=== PATIENT | male | born 1990 | race Two or more races ===

== ENCOUNTER 2019-01-13 17:17 | Emergency (ER) | payer OTHER ==
[~2019-01-13] VITALS: Ht 180.3 cm; Wt 82.6 kg
[2019-01-13 17:29] VITALS: Ht 180.3 cm; Wt 82.6 kg
[2019-01-13 17:50] LABS: BASOPHIL % 0.7 % (0-2); PLATELET COUNT 256 x10^3mcL (130-400); RED CELL DISTRIBUTION WIDTH 12.8 % (11.5-14.5)
[2019-01-13 17:57] LABS: CALCIUM 8.6 mg/dL (8.5-10.1); CARBON DIOXIDE 28.5 mmol/L (21-32); CHLORIDE SERUM 102 mmol/L (98-107); GFR1 > 60 mL/min; GLUCOSE SERUM 119 mg/dL (74-106); POTASSIUM SERUM 3.9 mmol/L (3.5-5.1); SODIUM SERUM 140 mmol/L (136-145)
[2019-01-13 18:01] LABS: ALKALINE PHOSPHATASE 65 U/L (46-116); ALT/SGPT 36 U/L (16-63); AST/SGOT 22 U/L (15-37); BILIRUBIN TOTAL 0.4 mg/dL (0.20-1.00); LIPASE 396 IU/L (73-393); TOTAL PROTEIN, SERUM 7.2 g/dL (6.4-8.2)
[2019-01-13 19:48] VITALS: BP 118/64
== END 2019-01-13 19:48 | disposition home or self-care (01) ==
LOC: ED 17:17
PROVIDERS: Emergency Medicine
DX: K29.00 Acute gastritis without bleeding (principal)
CPT/HCPCS: 36415; Q0092; Q0162

== ENCOUNTER 2019-02-17 15:54 | Emergency (ER) | payer OTHER ==
[~2019-02-17] VITALS: Ht 180.3 cm; Wt 83.5 kg
[2019-02-17 16:04] VITALS: BP 124/69; Ht 180.3 cm; Wt 83.5 kg
== END 2019-02-17 18:32 | disposition home or self-care (01) ==
LOC: ED 15:54
DX: T16.1XXA Foreign body in right ear, initial encounter (principal); X58.XXXA Exposure to other specified factors, initial encounter; Y93.89 Activity, other specified; Y92.89 Other specified places as the place of occurrence of the external cause; Y99.8 Other external cause status

== ENCOUNTER 2019-03-04 04:32 | Emergency (ER) | payer OTHER ==
[~2019-03-04] VITALS: Ht 180.3 cm; Wt 84.6 kg
[2019-03-04 04:37] VITALS: Ht 180.3 cm; Wt 84.6 kg
[2019-03-04 06:07] VITALS: BP 112/71
== END 2019-03-04 06:07 | disposition home or self-care (01) ==
LOC: ED 04:32
DX: R11.2 Nausea with vomiting, unspecified (principal); R19.7 Diarrhea, unspecified; R10.13 Epigastric pain; R68.83 Chills (without fever)
CPT/HCPCS: J2270; Q0162